=== PATIENT | female | born 1985 | race Asian ===

== ENCOUNTER 2017-05-17 23:55 | Emergency (ER) | payer BC ==
[~2017-05-17] VITALS: Ht 160 cm; Wt 52.2 kg
[2017-05-18 00:05] VITALS: BP 128/88
[2017-05-18] MEDS ORDERED: NKM (00:05)
[2017-05-18] MEDS ORDERED: IBUPROFEN600 MG ORAL (00:18)
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
[2017-05-18 00:40] VITALS: BP 128/88
--- NOTE | 2017-05-18 12:04 | Diagnostic Imaging Report ---
Indication: Trauma Technique: XRAY Chest 2v Comparison: None Findings: Heart size and mediastinal contours are within normal limits. There is no focal airspace consolidation, pleural effusion or pneumothorax. No acute osseous abnormality seen. Impression: No radiographic evidence of acute cardiopulmonary disease. No acute osseous abnormality seen.
== END 2017-05-18 00:40 | disposition home or self-care (01) ==
LOC: EMR 05-18 00:17
DX: S20.219A Contusion of unspecified front wall of thorax, initial encounter (principal); V43.52XA Car driver injured in collision with other type car in traffic accident, initial encounter; Y92.410 Unspecified street and highway as the place of occurrence of the external cause
CPT/HCPCS: 71020; 99283